=== PATIENT | female | born 1925 | race Caucasian/White ===

== ENCOUNTER 2016-11-01 14:57 | Emergency (ER) | payer OTHER ==
[2016-11-01 18:44] VITALS: BP 125/88
== END 2016-11-01 18:44 | disposition home or self-care (01) ==
LOC: ED 14:57
DX: S80.02XA Contusion of left knee, initial encounter (principal); S80.01XA Contusion of right knee, initial encounter; I10 Essential (primary) hypertension; F03.90 Unspecified dementia, unspecified severity, without behavioral disturbance, psychotic disturbance, mood disturbance, and anxiety; W18.30XA Fall on same level, unspecified, initial encounter; Y93.89 Activity, other specified; Y92.89 Other specified places as the place of occurrence of the external cause; Y99.8 Other external cause status
CPT/HCPCS: Q0092

== ENCOUNTER 2016-12-19 17:39 | Emergency (ER) | payer OTHER ==
[~2016-12-19] VITALS: Ht 170.2 cm; Wt 68.0 kg
[2016-12-19 17:44] VITALS: BP 127/62
[2016-12-20] MEDS ORDERED: DONEPEZIL HYDRO10 M2 PO (14:47)
[2016-12-20] MEDS ORDERED: LEADER MELATONIN5 MG PO (14:47)
[2016-12-20] MEDS ORDERED: DEPAKOTE ER250 M1 PO (14:47)
[2016-12-20] MEDS ORDERED: TOPROL XL25 MG PO (14:48)
== END 2016-12-19 19:25 | disposition home or self-care (01) ==
LOC: ED 17:39
DX: S09.90XA Unspecified injury of head, initial encounter (principal); W18.09XA Striking against other object with subsequent fall, initial encounter; Y93.89 Activity, other specified; Y92.89 Other specified places as the place of occurrence of the external cause; Y99.8 Other external cause status

== ENCOUNTER 2016-12-20 12:27 | Inpatient (IN) | payer OTHER ==
[~2016-12-20] VITALS: Ht 160 cm; Wt 57.2 kg
[2016-12-20 14:20] LABS: BASOPHIL % 0.4 % (0-2); PLATELET COUNT 206 x10^3mcL (130-400); RED CELL DISTRIBUTION WIDTH 14.4 % (11.5-14.5)
[2016-12-20 14:31] LABS: UA SPECIFIC GRAVITY >=1.030 (1.005-1.035); microscopic required? YES; urine erythrocyte TRACE (NEGATIVE)
[2016-12-20 14:31] LABS: CALCIUM 8.6 mg/dL (8.5-10.1); CARBON DIOXIDE 30.1 mmol/L (21-32); CHLORIDE SERUM 106 mmol/L (98-107); CREATININE SERUM 0.9 mg/dL (0.6-1.0); GLUCOSE SERUM 91 mg/dL (74-106); SODIUM SERUM 140 mmol/L (136-145)
[2016-12-20 14:40] LABS: ALKALINE PHOSPHATASE 97 U/L (46-116); ALT/SGPT 16 U/L (14-59); AMYLASE 66 U/L (25-115); AST/SGOT 16 U/L (15-37); BILIRUBIN TOTAL 0.5 mg/dL (0.20-1.00); CHOLESTEROL 174 mg/dL (<200); LIPASE 141 IU/L (73-393); MAGNESIUM 2.3 mg/dL (1.8-2.4); T4(THYROXINE) 6.4 ug/dL (4.7-13.3); TOTAL PROTEIN, SERUM 6.9 g/dL (6.4-8.2)
[2016-12-20 14:43] LABS: AMPHETAMINE QUAL UR NONE DETECTED (NEG <=1000)
[2016-12-20 14:46] LABS: ALBUMIN 3.3 g/dL (3.4-5.0); HDL CHOLESTEROL 74 mg/dL (40-60)
[2016-12-20] MEDS ORDERED: LEADER MELATONIN5 MG PO (14:47)
[2016-12-20] MEDS ORDERED: DONEPEZIL HYDRO10 M2 PO (14:47)
[2016-12-20] MEDS ORDERED: DEPAKOTE ER250 M1 PO (14:47)
[2016-12-20] MEDS ORDERED: TOPROL XL25 MG PO (14:48)
[2016-12-20 16:52] VITALS: BP 145/67
[2016-12-20 21:22] VITALS: BP 137/59
[2016-12-21 07:35] VITALS: BP 118/46
[2016-12-21 07:50] LABS: CHLORIDE SERUM 108 mmol/L (98-107); CREATININE SERUM 0.7 mg/dL (0.6-1.0); GLUCOSE SERUM 101 mg/dL (74-106); PHOSPHOROUS 3.6 mg/dL (2.5-4.9); POTASSIUM SERUM 3.7 mmol/L (3.5-5.1); SODIUM SERUM 141 mmol/L (136-145)
[2016-12-21 07:55] LABS: BASOPHIL % 0.3 % (0-2); PLATELET COUNT 183 x10^3mcL (130-400); RED CELL DISTRIBUTION WIDTH 13.8 % (11.5-14.5)
[2016-12-21 08:30] VITALS: BP 113/50
[2016-12-21 11:53] VITALS: Ht 160 cm; Wt 57.2 kg
[2016-12-21 13:26] VITALS: BP 120/57
[2016-12-21 17:57] VITALS: BP 124/61
[2016-12-21 20:34] VITALS: BP 149/59
[2016-12-22 06:31] LABS: BASOPHIL % 0.3 % (0-2); PLATELET COUNT 173 x10^3mcL (130-400); RED CELL DISTRIBUTION WIDTH 13.9 % (11.5-14.5)
[2016-12-22 06:42] VITALS: BP 135/62
[2016-12-22 07:00] LABS: CALCIUM 8.4 mg/dL (8.5-10.1); CHLORIDE SERUM 108 mmol/L (98-107); CREATININE SERUM 0.7 mg/dL (0.6-1.0); GLUCOSE SERUM 90 mg/dL (74-106); SODIUM SERUM 142 mmol/L (136-145)
[2016-12-22 10:18] VITALS: BP 128/58
[2016-12-22 17:39] VITALS: BP 122/54
[2016-12-22 20:37] VITALS: BP 154/70
[2016-12-23 05:13] VITALS: BP 145/56
[2016-12-23 10:04] VITALS: BP 121/54
[2016-12-23 14:00] VITALS: BP 115/46
[2016-12-23 18:09] VITALS: BP 117/58
[2016-12-23 19:45] VITALS: BP 118/61
[2016-12-23 21:26] VITALS: BP 125/54
[2016-12-24 05:33] VITALS: BP 120/51
[2016-12-24 09:01] VITALS: BP 115/48
[2016-12-24 09:21] VITALS: BP 128/65
[2016-12-24 13:12] VITALS: BP 128/65
== END 2016-12-24 14:15 | disposition hospice, home (50) | DRG 64 ==
LOC: ED 12:27 → DU 15:21 → MU 15:21 → DU 16:52 → MU 12-21 15:55
PROVIDERS: Emergency Medicine; Family Medicine; ADMIT Family Medicine
DX: I63.9 Cerebral infarction, unspecified (principal); N17.0 Acute kidney failure with tubular necrosis; E44.1 Mild protein-calorie malnutrition; N39.0 Urinary tract infection, site not specified; S09.90XA Unspecified injury of head, initial encounter; G30.9 Alzheimer's disease, unspecified; F02.80 Dementia in other diseases classified elsewhere, unspecified severity, without behavioral disturbance, psychotic disturbance, mood disturbance, and anxiety; I35.1 Nonrheumatic aortic (valve) insufficiency; I73.9 Peripheral vascular disease, unspecified; I10 Essential (primary) hypertension; L82.1 Other seborrheic keratosis; M50.33 Other cervical disc degeneration, cervicothoracic region; Z66 Do not resuscitate; Z68.22 Body mass index [BMI] 22.0-22.9, adult; W18.39XA Other fall on same level, initial encounter; Y92.198 Other place in other specified residential institution as the place of occurrence of the external cause
CPT/HCPCS: 80307; 82962; 83880; 97110-GP; 97116-GP; 97530-GP; G0480; J0696; J2310; J7030; J7060; Q0092